=== PATIENT | female | born 1990 | race Caucasian/White ===

== ENCOUNTER 2018-05-12 11:54 | Emergency (ER) | payer MEDICAID, OTHER ==
[2018-05-12 12:32] VITALS: BP 137/91; PULSE 89; RESP 19; TEMP 98.8; O2SAT 100; BMI 33.3
--- NOTE | 2018-05-12 13:37 | ED PDOC ---
Arrival/HPI - General Chief Complaint: Abnormal Skin Integrity Time Seen by Provider: 05/12/18 12:07 Historian: Patient - History of Present Illness Narrative History of Present Illness (Text): 05/12/18 13:48 28-year-old female presents today with a 2 day history of pruritic rash to the medial thighs and medial upper arms bilaterally. Patient states she took Benadryl at home with minimal improvement. Patient states the rash is more pruritic at night. Patient denies fevers or chills. Denies trauma or injury. Patient states the rash started after shaving her legs. Patient denies new soaps lotions detergents perfumes colognes or new medications. She denies dizziness or weakness. Denies chest pain or shortness of breath. Patient denies feeling of throat closing. Past Medical History - Provider Review Nursing Documentation Reviewed: Yes - Travel History Have you recently traveled outside [place] w/in the past 3 mons?: No - Infectious Disease Hx of Infectious Diseases: None - Tetanus Immunization Tetanus Immunization: Unknown - Reproductive Currently : No - Past Medical History Past Medical History: No Previous - Cardiac Hx Cardiac Disorders: No Other/Comment: DENIES - Pulmonary Hx Respiratory Disorders: No - Neurological Hx Neurological Disorder: No - HEENT Hx HEENT Disorder: No - Renal Hx Renal Disorder: No - Endocrine/Metabolic Hx Endocrine Disorders: Yes Hx Hypothyroidism: Yes - Hematological/Oncological Hx Blood Disorders: No - Integumentary Hx Dermatological Disorder: No - Musculoskeletal/Rheumatological Hx Musculoskeletal Disorders: No - Gastrointestinal Hx Gastrointestinal Disorders: No - Genitourinary/Gynecological Hx Genitourinary Disorders: No - Psychiatric Hx Psychophysiologic Disorder: No Hx Substance Use: No - Past Surgical History Past Surgical History: No Previous - Anesthesia Hx Anesthesia: No - Suicidal Assessment Feels Threatened In Home Enviroment: No Family/Social History - Physician Review Nursing Documentation Reviewed: Yes Family/Social History: Unknown Family HX Smoking Status: Never Smoked Hx Alcohol Use: No Hx Substance Use: No Hx Substance Use Treatment: No Allergies/Home Meds Allergies/Adverse Reactions: Allergies peanut Allergy (Verified 05/12/18 12:32) RASH Home Medications: Home Meds Medication Instructions Recorded Confirmed Levothyroxine [Synthroid] 25 mcg PO DAILY 05/12/16 05/12/18 Review of Systems - Review of Systems Constitutional: absent: Fatigue, Fevers Respiratory: absent: SOB, Cough Cardiovascular: absent: Chest Pain, Palpitations Gastrointestinal: absent: Abdominal Pain, Nausea, Vomiting Skin: Rash, Pruritis Neurological: absent: Headache, Dizziness Psychiatric: absent: Anxiety, Depression Physical Exam Vital Signs Reviewed: Yes Vital Signs Temp Pulse Resp BP Pulse Ox 05/12/18 12:31 98.8 F 89 19 137/91 H 100 Temperature: Afebrile Blood Pressure: Hypertensive Pulse: Regular Respiratory Rate: Normal Appearance: Positive for: Well-Appearing, Non-Toxic, Comfortable Pain Distress: None Mental Status: Positive for: Alert and Oriented X 3 - Systems Exam Head: Present: Atraumatic Mouth: Present: Moist Mucous Membranes. No: Drooling, Trismus Pharnyx: Present: Normal. No: ERYTHEMA, EXUDATE, TONSILS ENLARGED Neck: Present: Normal Range of Motion Respiratory/Chest: Present: Clear to Auscultation, Good Air Exchange. No: Respiratory Distress, Accessory Muscle Use Cardiovascular: Present: Regular Rate and Rhythm, Normal S1, S2. No: Murmurs Upper Extremity: Present: Normal ROM Lower Extremity: Present: Normal ROM Neurological: Present: GCS=15, Speech Normal Skin: Present: Warm, Dry, Rashes (there are multiple erythematous papular lesions noted to the medial and posterior thighs bilaterally. there are few erythematous plaques noted to the medial arms bilaterally. no tenderness. ), Normal Color Psychiatric: Present: Alert, Oriented x 3 Medical Decision Making ED Course and Treatment: 05/12/18 13:46 Patient is nontoxic well-appearing in no distress with stable vital signs no angioedema. Lungs are clear to auscultation bilaterally there is no wheezing noted. The airway is patent pt with rash to medial thighs bilaterally and medial upper arms bilaterally. pt is driving home. will given rx for benadryl. will given pepcid in er. Pepcid PO Patient reassessment: After medications patient is feeling much better the lungs are clear to auscultation bilaterally the airway is patent the patient is speaking in full sentences. I advised taking Benadryl every 6 hours as needed for itch [as well as prednisone daily x4 days]. Advised patient to follow up with primary care physician within the next 2 days and return if symptoms worsen persist or if new symptoms develop Impression :Rash Benadryl 1 tablet every 6 hours as needed for itch. Pepcid one tablet daily Follow up with the primary care physician tomorrow Follow up with the lidding machine operator within the next 2 days. Return if symptoms worsen persist or if new symptoms develop: Shortness of breath, feeling of throat closing, difficulty speaking or any other concerning symptoms develop Disposition/Present on Arrival - Present on Arrival Any Indicators Present on Arrival: No History of DVT/PE: No History of Uncontrolled Diabetes: No Urinary Catheter: No History of Decub. Ulcer: No History Surgical Site Infection Following: None - Disposition Have Diagnosis and Disposition been Completed?: Yes Diagnosis: Rash Disposition: HOME/ ROUTINE Disposition Time: 13:34 Patient Plan: Discharge Condition: GOOD Discharge Instructions (ExitCare): Skin Rash (DC) Additional Instructions: Benadryl 1 tablet every 6 hours as needed for itch. Pepcid one tablet daily Follow up with the primary care physician tomorrow Follow up with the lidding machine operator within the next 2 days. Return if symptoms worsen persist or if new symptoms develop: Shortness of breath, feeling of throat closing, difficulty speaking or any other concerning symptoms develop Prescriptions: DiphenhydrAMINE [Benadryl] 25 mg PO Q6H #20 cap Famotidine [Pepcid] 20 mg PO DAILY #30 tab Referrals: Sb Gould MD [Staff Provider] - Follow up with primary Carla Freeman MD [Staff Provider] - Follow up with primary Janae Mccallum MD [Medical Doctor] - Follow up with primary [facility] [Outside] - Follow up with primary Forms: [facility] ([place]i), WORK NOTE
== END 2018-05-12 13:57 | disposition home or self-care (01) ==
LOC: ED 11:54
DX: R21 Rash and other nonspecific skin eruption (principal)